=== PATIENT | male | born 1960 | race Caucasian/White ===

== ENCOUNTER → 2020-09-07 | Outpatient (CLI) | payer OTHER | LOC: SLEEP 15:05 | DX: I50.22 Chronic systolic (congestive) heart failure (principal); I48.0 Paroxysmal atrial fibrillation; G47.33 Obstructive sleep apnea (adult) (pediatric); R09.02 Hypoxemia | CPT/HCPCS: 95811 ==

== ENCOUNTER → 2022-02-07 | Outpatient (CLI) | payer OTHER | LOC: HEART 5 14:59 | DX: J43.9 Emphysema, unspecified (principal) | CPT/HCPCS: 94060; 94729 ==

== ENCOUNTER → 2022-02-20 | Outpatient (CLI) | payer OTHER | LOC: KOH-I 14:58 | DX: I50.9 Heart failure, unspecified (principal); J98.11 Atelectasis | CPT/HCPCS: 71046 ==